=== PATIENT | female | born 1990 | race Two or more races ===

== ENCOUNTER 2025-03-25 21:51 | Inpatient (IN) | payer OTHER ==
[~2025-03-25] VITALS: Ht 160 cm; Wt 61.7 kg
[2025-03-25 21:19] VITALS: BP 114/70
[2025-03-25] MEDS ORDERED: AMPICILLIN SODIUM 2,000 MG VIAL IV STA (21:53)
[2025-03-25] MEDS ORDERED: PRENATABS RX T1 EACH PO (21:54)
[2025-03-25] MEDS ORDERED: RINGERS SOLUTION,LACTATED 1,000 ML IV SCH (22:00)
[2025-03-25 23:16] VITALS: BP 112/64
[2025-03-25 23:32] LABS: BASO % 0.4 % (0.1-1.2); EOS # 0.08 (0.04-0.54); EOS % 0.8 % (0.7-7.0); LYMPH # 1.40 (1.18-3.74); LYMPH % 14.4 % (19.3-53.1); MEAN PLATELET VOLUME 11.10 fl (9.4-12.4); MONO # 0.93 (0.24-0.82); MONO % 9.6 % (4.7-12.5); NEUT # 7.17 (1.56-6.13); NEUT % 73.8 % (34.0-71.1); RED CELL DISTRIBUTION WIDTH 14.0 % (11.6-14.4); URINE APPEARANCE Cloudy; URINE BILIRRUBIN Negative (NEGATIVE); URINE BLOOD Small; URINE COLOR Yellow; URINE GLUCOSE Negative (NEGATIVE); URINE KETONE Negative (NEGATIVE); URINE LEUKOCYTE Large; URINE NITRATE Negative; URINE PROTEIN Negative (NEGATIVE); URINE UROBILINOGEN 0.2 E.U./dl
[2025-03-25 23:33] LABS: URINE BACTERIA 5361.3 uL (0.0-1933); URINE CAST 2.78 uL (0.0-1.40); URINE EPITHELIAL CELLS 169.8 uL (0.0-38.8); URINE RBC 3.9 uL (0.0-20.8); URINE WBC 661.2 uL (0.0-23.2)
[2025-03-25] MEDS ORDERED: ERYTHROMYCIN BASE OPHT 1GM EACH TUBE OP ONE (23:45)
[2025-03-25] MEDS ORDERED: CHLORHEXIDINE GLUCONATE 120 ML BOTTLE TOP ONE (23:46)
[2025-03-25] MEDS ORDERED: OXYTOCIN 20 UNITS/1000ML RL PIGGYBAG IV ONE (23:46)
[2025-03-25] MEDS ORDERED: LIDOCAINE HCL 1% 10ML VIAL ONE (23:46)
[2025-03-25 23:50] LABS: INR < 0.93
[2025-03-25 23:54] LABS: ALT/SGPT 26.0 U/L (12-78); AST/SGOT 16.0 U/L (15-37); BILIRUBIN TOTAL 0.33 mg/dL (0.3-1.2); BUN CREA RATIO 28.0 (7.0-25.0); CREATININE SERUM 0.46 mg/dL (0.55-1.02); GFR 154.58; GLOBULINA 3.2 G/DL (2.4-3.5); GLUCOSE FASTING 101.0 mg/dL (65-100); OSMOLALITY SERUM 282.0 MOSM/KG (275-295)
[2025-03-26] VITALS (11 sets, daily range): BP systolic 100–124; BP diastolic 58–76
[2025-03-26] MEDS ORDERED: CHLORHEXIDINE GLUCONATE 120 ML BOTTLE TOP ONE (01:00)
[2025-03-26] MEDS ORDERED: ERYTHROMYCIN BASE OPHT 1GM EACH TUBE OP ONE (01:00)
[2025-03-26] MEDS ORDERED: AMPICILLIN SODIUM 1,000 MG VIAL IV SCH (01:00)
[2025-03-26] MEDS ORDERED: ACETAMINOPHEN 500 MG GEL..CAP PO PRN (01:00)
[2025-03-26] MEDS ORDERED: OXYTOCIN 1,000 ML IV SCH (01:00)
[2025-03-26] MEDS ORDERED: BENZOCAINE/MENTHOL 90 ML BOTTLE TOP SCH (09:00)
[2025-03-26] MEDS ORDERED: HYDROCORTISONE 2.5% 30 GM TUBE RECTAL SCH (09:00)
[2025-03-26 12:43] LABS: BASO % 0.3 % (0.1-1.2); EOS # 0.05 (0.04-0.54); EOS % 0.4 % (0.7-7.0); LYMPH # 1.51 (1.18-3.74); LYMPH % 10.9 % (19.3-53.1); MEAN PLATELET VOLUME 10.40 fl (9.4-12.4); MONO # 1.12 (0.24-0.82); MONO % 8.1 % (4.7-12.5); NEUT # 11.02 (1.56-6.13); NEUT % 79.6 % (34.0-71.1); RED CELL DISTRIBUTION WIDTH 13.8 % (11.6-14.4)
[2025-03-27] VITALS: BP 97/60
[2025-03-27 09:25] VITALS: BP 106/69
== END 2025-03-27 15:48 | disposition home or self-care (01) | DRG 807 ==
LOC: LDR 21:51 → OB/GYN 21:51
PROVIDERS: Specialist; ADMIT Obstetrics & Gynecology; ATTEND Obstetrics & Gynecology
PROC: 10E0XZZ Delivery of Products of Conception, External Approach (ICD-10-PCS; principal; 2025-03-25)
PROC: 4A1HXCZ Monitoring of Products of Conception, Cardiac Rate, External Approach (ICD-10-PCS; 2025-03-25)
DX: O69.81X0 Labor and delivery complicated by cord around neck, without compression, not applicable or unspecified (principal); Z37.0 Single live birth; Z3A.39 39 weeks gestation of pregnancy